=== PATIENT | female | born 1940 | race Caucasian/White ===

== ENCOUNTER 2017-02-25 21:53 | Inpatient (IN) | payer MEDICARE ==
[~2017-02-25] VITALS: Ht 167.6 cm; Wt 68.0 kg
[~2017-02-25 21:53] MED LIST: ASPI81TA31 PO; CHOL10002 PO; PRAV40TA3 PO
--- NOTE | 2017-02-25 23:45 | NUR ---
ARLETTE NNIO TECH HERE TO DO PROCEDURE
--- NOTE | 2017-02-25 23:45 | NUR ---
PATIENT WALKED INTO ER C/O LEFT LEG PAIN AND SWELLING. PATIENT STATES PAIN STARTED THIS AFTERNOON AND PROGRESSIVELY GOT WORSE. CAP REFILL IS 3 SECOND.
[2017-02-26] MEDS ORDERED: IV NORMAL SALINE 1000 ML BAG IV ONE (00:30)
[2017-02-26] MEDS ORDERED: ENOXAPARIN SODIUM 60 MG/0.6 ML DISP.SYRIN SQ ONE (00:30)
[2017-02-26] MEDS ORDERED: Z GUARD REMEDY PASTE 57 GM TUBE TOP PRN (00:45)
[2017-02-26] MEDS ORDERED: ACETAMINOPHEN 325 MG TABLET PO PRN (00:45)
[2017-02-26] MEDS ORDERED: MAGNESIUM HYDROXIDE 30 ML LIQUID UDC PO PRN (00:45)
[2017-02-26] MEDS ORDERED: ONDANSETRON 4 MG/2 ML VIAL IV PRN (00:45)
[2017-02-26] MEDS ORDERED: HYDROCODONE/APAP 5-325MG TABLET PO PRN (00:45)
[2017-02-26] MEDS ORDERED: ENOXAPARIN SODIUM 80 MG/0.8 ML DISP.SYRIN SQ ONE (00:54)
--- NOTE | 2017-02-26 01:00 | NUR ---
PATIENT ANXIOUS ABOUT BEING ADMITTED. ALLOW PATIENT TO VERBALIZED FEAR AND GAVE PATIENT EDUCATION ABOUT DX
[2017-02-26 01:04] LABS: BASOPHILS % (AUTO) 0.2 % (0.0-2.0); EOSINOPHILS # (AUTO) 0.1 K/uL (0.0-0.7); EOSINOPHILS % (AUTO) 0.8 % (0.0-7.0); HEMATOCRIT 39.3 % (37-47); HEMOGLOBIN 13.5 G/DL (12.0-16.0); LYMPHOCYTES % (AUTO) 6.5 % (20.5-51.5); MEAN CORPUSCULAR HEMOGLOBIN 29.9 UUG (27.0-31.0); MEAN CORPUSCULAR HGB CONC 35 g/dL (32.0-37.0); MEAN CORPUSCULAR VOLUME 86.8 FL (81.0-99.0); MONOCYTES # (AUTO) 1.1 K/UL (0.1-1.30); MONOCYTES % (AUTO) 7.1 % (0.0-11.0); NEUTROPHILS # (AUTO) 12.8 K/UL (1.8-8.9); NEUTROPHILS % (AUTO) 85.4 % (38.5-71.5); PLATELET COUNT (AUTO) 199 K/UL (150-450); RED BLOOD CELL COUNT(AUTO) 4.52 MIL/UL (4.2-5.4)
[2017-02-26 01:14] LABS: ALANINE AMINOTRANSFERASE 26 U/L (14-59); ALKALINE PHOSPHATASE 114 U/L (50-136); ASPARTATE AMINOTRANSFERASE 11 U/L (15-37); BILIRUBIN,DIRECT 0.1 mg/dL (0.0-0.2); BILIRUBIN,TOTAL 0.3 mg/dL (0.2-1.0); CARBON DIOXIDE 29 mmol/L (21-32); CHLORIDE 105 mmol/L (98-107); CREATININE 1.1 mg/dL (0.6-1.3); GLUCOSE 118 mg/dL (74-106); POTASSIUM 3.9 mmol/L (3.5-5.1); TOTAL PROTEIN, SERUM 7.1 g/dL (6.4-8.2); UREA NITROGEN, BLOOD 27 mg/dL (7-18)
[2017-02-26 03:14] VITALS: BP 152/82
--- NOTE | 2017-02-26 08:00 | NUR ---
RECEIVED PATIENT IN BED AWAKE ALERT AND ORIENTED DENIES PAIN OR DISCOMFORTS AT THIS TIME REMAIN ON ROOM AIR WITH NO SHORTNESS OF BREATH.LEFT LOWER EXT IS SWOLLEN ELEVATED ON 2 PILLOWS AND PATIENT ENCOURAGED TO KEEP HER LEGS ELEVATED AND SHE EXPRESSED UNDERSTANDING .MADE COMFORTABLE AND NO DISTRESS NOTED AT THIS TIME.
[2017-02-26] MEDS: ASPIRIN 81 MG TAB.CHEW PO SCH (08:22)
--- NOTE | 2017-02-26 10:41 | NUR ---
PATIENT SEEN AND EXAMINED BY DR SAMI RODRIGUEZ WITH NEW ORDERS AND NOTED
[2017-02-26] MEDS: ENOXAPARIN SODIUM 80 MG/0.8 ML DISP.SYRIN SQ SCH ×2 (10:52→21:40)
[2017-02-26 11:20] VITALS: BP 127/72
[2017-02-26 13:29] LABS: *BILIRUBIN,URIN NEGATIVE (NEGATIVE); *BLOOD, URINE 1+ (NEGATIVE); *CLARITY,URINE CLEAR (CLEAR); *COLOR,URINE YELLOW (YELLOW); *KETONES,URINE NEGATIVE (NEGATIVE); *PROTEIN,URINE NEGATIVE (NEGATIVE); *UROBILINOGEN,URINE 0.2 E.U./dl (NORMAL); LEUKOCYTE ESTERASE ,URINE NEGATIVE (NEGATIVE); NITRITE, URINE NEGATIVE (NEGATIVE); PH,URINE 5.5 (5.0-8.0); UGLUCOSE NEGATIVE (NEGATIVE)
[2017-02-26 13:49] LABS: *AMPHETAMINE, URINE NEGATIVE (NEGATIVE); *BARBITURATE, URINE NEGATIVE (NEGATIVE); *CANNABINOID, URINE NEGATIVE (NEGATIVE); *COCCAINE, URINE NEGATIVE (NEGATIVE); *OPIATE, URINE NEGATIVE (NEGATIVE); *PHENCYCLIDINE SCREEN,URINE NEGATIVE (NEGATIVE)
[2017-02-26 13:59] LABS: BACTERIA,URINE NONE SEEN /HPF (NONE SEEN); MUCUS,URINE FEW /LPF (0-FEW); SQUAMOUS EPITHELIAL CELL,UR FEW /HPF (NONE SEEN)
[2017-02-26 15:39] VITALS: BP 127/72
--- NOTE | 2017-02-26 17:51 | NUR ---
RESTING WITH FAMILY AT HER BEDSIDE VISITING DENIES PAIN OR DISCOMFORTS AT THIS TIME LEFT LOWER LEG IS ELEVATED ON 2 PILLOWS
--- NOTE | 2017-02-26 19:00 | NUR ---
Bedside reporting with AM nurse. Patient appears sleeping during initial rounds. No s/s of respiratory distress noted. Safety measures and fall precaution maintained. Continue current plan of care.
[2017-02-26 20:00] VITALS: BP 98/70
[2017-02-27 00:30] VITALS: BP 150/74
[2017-02-27 04:00] VITALS: BP 137/73
--- NOTE | 2017-02-27 05:49 | NUR ---
Slept at long interval. Medicated once for complaint of headache with relief. BLE kept elevated with pillows. All needs attended and met No significant event reported all night. Continue care as planned.
--- NOTE | 2017-02-27 06:52 | NUR ---
Bedside reporting with RADHA Anglin
[2017-02-27 07:35] LABS: EOSINOPHILS # (AUTO) 0.1 K/uL (0.0-0.7); HEMATOCRIT 34.4 % (37-47); HEMOGLOBIN 11.7 G/DL (12.0-16.0); LYMPHOCYTES % (AUTO) 8.4 % (20.5-51.5); MEAN CORPUSCULAR HEMOGLOBIN 29.8 UUG (27.0-31.0); MEAN CORPUSCULAR HGB CONC 34 g/dL (32.0-37.0); MEAN CORPUSCULAR VOLUME 87.5 FL (81.0-99.0); MONOCYTES # (AUTO) 0.7 K/UL (0.1-1.30); MONOCYTES % (AUTO) 6.2 % (0.0-11.0); NEUTROPHILS # (AUTO) 9.7 K/UL (1.8-8.9); NEUTROPHILS % (AUTO) 84.4 % (38.5-71.5); PLATELET COUNT (AUTO) 190 K/UL (150-450); RED BLOOD CELL COUNT(AUTO) 3.93 MIL/UL (4.2-5.4); WHITE BLOOD COUNT (AUTO) 11.5 K/UL (4.0-11.2)
--- NOTE | 2017-02-27 08:00 | NUR ---
PATIENT IS AWAKE ALERT AND ORIENTED STATED THAT SHE FEELS THAT HER LEG IS BETTER TODAY SWELLING HAS EASED SOME INSTRUCTED TO CONTINUE TO ELEVATE ON 2 PILLOWS AND SHE EXPRESSED UNDERSTANDING.
[2017-02-27 08:18] LABS: CARBON DIOXIDE 30 mmol/L (21-32); CHLORIDE 108 mmol/L (98-107); CHOLESTEROL 248 mg/dL (<200); CREATININE 0.8 mg/dL (0.6-1.3); GLUCOSE 122 mg/dL (74-106); HDL CHOLESTEROL 47 mg/dL (40-60); PHOSPHOROUS 2.7 mg/dL (2.5-4.9); POTASSIUM 4.7 mmol/L (3.5-5.1); TRIGLYCERIDES 102 MG/DL (30-150); UREA NITROGEN, BLOOD 18 mg/dL (7-18)
[2017-02-27] MEDS: ASPIRIN 81 MG TAB.CHEW PO SCH (08:28)
[2017-02-27] MEDS: ENOXAPARIN SODIUM 80 MG/0.8 ML DISP.SYRIN SQ SCH (08:35)
[2017-02-27 09:11] LABS: HOMOCYSTEINE, PLASMA 6.9 umol/L (0.0-15.0)
[2017-02-27] MEDS ORDERED: IBUP-1610 PO (09:11)
[2017-02-27] MEDS ORDERED: CHOL1CRY2 MC (09:11)
[2017-02-27 11:29] VITALS: BP 156/86
--- NOTE | 2017-02-27 11:44 | NUR ---
PATIENT SEEN AND EXAMINED BY DR GALLARDO WITH ORDER TO DISCHARGE PATIENT HOME TODAY AFTER SEEN BY THE HEMATOLOGY AND NOTED.
[2017-02-27] MEDS ORDERED: RIVA15TA PO (11:48)
[2017-02-27 11:56] LABS: IRON, SERUM 51 ug/dL (50-175)
--- NOTE | 2017-02-27 13:32 | NUR ---
PATIENT IS AWARE THAT SHE WILL BE DISCHARGED HOME TODAY AFTER SEEN BY DR VIEIRA AND WILL BE ON [place] AND SHE STATED [place] STATED HER DAVID WILL BE ABLE TO PICK HER UP LATER [facility].
[2017-02-27 15:56] VITALS: BP 133/81
--- NOTE | 2017-02-27 16:38 | NUR ---
WE ARE STILL WAITING FOR [employer] COUNSEL[employer] DR FINNEY TO SEE AND CLEAR PATIENT FOR DISCHARGE.
--- NOTE | 2017-02-27 17:35 | NUR ---
DR RAMIRES HERE TO SEE PATIENT WITH NEW ORDERS AND STATED THAT PATIENT CAN BE DISCHARGED AFTER THE BLOOD DRAW AND PATIENT SHOULD SEE HER IN HER OFFICE ON February AT 4PM.PATIENT INSTRUCTED AND IS NOW AWAITING FOR THE LAB DRAWS.
--- NOTE | 2017-02-27 18:00 | NUR ---
NEW PRESCRIPTIONS RECEIVED FROM DR RAMIRES WHICH DOES NOT MATCH THE ORIGINAL ORDERS THAT WAS SENT TO THE [facility] OR IN THE DISCHARGE MEDICATION AND FAXED TO [facility] SPOKE WITH SO AND INSTRUCTED HER TO DISREGARD THE PREVIOUS ORDERS FROM DR GALLARDO.
[2017-02-27] MEDS ORDERED: RIVAROXABAN 15 MG TABLET PO SCH (19:00)
--- NOTE | 2017-02-27 19:00 | NUR ---
AWAITING FOR LAB WORK ORDERED ENDORSED
--- NOTE | 2017-02-27 20:10 | NUR ---
PATIENT AWAKE IN BED. A/O X4. WAITING IN ROOM FOR TO PICK HER UP FOR DISCHARGE. VS WNL. C/O MILD PAIN IN LEFT LEG, BUT STATES SHE WILL TAKE SOMETHING FOR PAIN WHEN SHE GOES HOME. HEPLOCK REMOVED. ALL NEEDS ATTENDED. WILL CONTINUE TO MONITOR AND ASSESS.
[2017-02-27 20:27] VITALS: BP 155/77
--- NOTE | 2017-02-27 21:05 | NUR ---
PATIENT DISCHARGED HOME IN STABLE CONDITION. PATIENT LEFT VIA PRIVATE CAR. ALL NEEDS ATTENDED.
[2017-02-28 08:06] LABS: A/G RATIO 1.1 (0.7-1.7); ALBUMIN 3.5 g/dL (2.9-4.4); ALPHA-1-GLOBULIN 0.3 g/dL (0.0-0.4); ALPHA-2-GLOBULIN 0.9 g/dL (0.4-1.0); BETA GLOBULIN 1.1 g/dL (0.7-1.3); GAMMA GLOBULIN 0.8 g/dL (0.4-1.8); GLOBULIN, TOTAL 3.1 g/dL (2.2-3.9); M-SPIKE Not Observed g/dL (Not Observed)
[2017-02-28 12:08] LABS: CANCER AG, 125 26.7 U/mL (0.0-38.1); CANCER ANTIGEN 15-3 20.7 U/mL (0.0-25.0); CARBOHYDRATE ANTIGEN, 19-9 19 U/mL (0-35)
[2017-03-02 00:17] LABS: PTT-LA 33.6 sec (0.0-51.9); THROMBIN TIME 20.8 sec (0.0-23.0)
[2017-03-02 01:07] LABS: LUPUS INTERPRETATION Comment: (.)
[2017-03-02 09:10] LABS: LUPUS INTERPRETATION Comment: (.); PTT-LA 32.9 sec (0.0-51.9); THROMBIN TIME 19.8 sec (0.0-23.0)
== END 2017-02-27 21:05 | disposition home or self-care (01) | DRG 299 ==
LOC: ER 21:53 → MED 02-26 01:23 → TELE 02-26 01:24
PROVIDERS: ADMIT Family Medicine; ATTEND Internal Medicine
DX: I82.412 Acute embolism and thrombosis of left femoral vein (principal); R53.2 Functional quadriplegia; E44.0 Moderate protein-calorie malnutrition; D68.9 Coagulation defect, unspecified; D68.59 Other primary thrombophilia; I82.432 Acute embolism and thrombosis of left popliteal vein; Z86.718 Personal history of other venous thrombosis and embolism; Z79.82 Long term (current) use of aspirin; E78.5 Hyperlipidemia, unspecified; Z68.24 Body mass index [BMI] 24.0-24.9, adult; M81.0 Age-related osteoporosis without current pathological fracture; D72.829 Elevated white blood cell count, unspecified; T38.0X5A Adverse effect of glucocorticoids and synthetic analogues, initial encounter; Y92.89 Other specified places as the place of occurrence of the external cause; M16.10 Unilateral primary osteoarthritis, unspecified hip
CPT/HCPCS: 36415; 70030-TC; 71010; 80307; 82378; 83090; 83550; 83615; 83735; 84100; 84155; 84165; 85025; 85305; 85613; 85651; 85730; 86300; 86301; 87040; 87086; 93005; 93307; A4663; J1650; J7030

== ENCOUNTER 2022-06-23 00:16 | Emergency (ER) | payer MEDICARE ==
[~2022-06-23 00:16] MED LIST changes: -CHOL10002 PO; +CHOL1CRY2 MC; -PRAV40TA3 PO; +RIVA15TA PO
--- NOTE | 2022-06-23 00:48 | NUR ---
Patient was called to be triaged but was not present in the waiting room or outside of ER.
--- NOTE | 2022-06-23 01:10 | NUR ---
Patient was called to be triaged but was not present in the waiting room or outside of ER.
--- NOTE | 2022-06-23 01:30 | NUR ---
Patient was called to be triaged but was not present. PATIENT WAS NOT TRIAGED OR SEEN BY ERMD.
== END 2022-06-23 01:30 | disposition left against medical advice (07) ==
LOC: ER 00:30
DX: Z53.21 Procedure and treatment not carried out due to patient leaving prior to being seen by health care provider (principal)